=== PATIENT | male | born 1995 | race African-American/Black ===

== ENCOUNTER 2018-02-09 18:50 | Emergency (ER) | payer OTHER ==
[2018-02-09] MEDS ORDERED: Lidocaine 2% VISCOUS* 15 ML UDC PO ONE (20:38)
[2018-02-09] MEDS ORDERED: Azithromycin TAB* 250 MG PO ONE (20:38)
--- NOTE | 2018-02-09 20:38 | ED ---
Head Injury - HPI Summary HPI Summary: Patient complains of mechanical fall from standing onto a hardwood floor with head injury. Denies LOC, vision change, N/V, CHAMPION, AMS, dizziness, any other pain or injury. Patient also complains of sore throat starting this morning. Denies fever, cough, CP, SOB, N/V/D, abdominal pain, change in urine, change in BM. Medical history is none. - History Of Current Complaint Chief Complaint: EDHeadache Stated Complaint: HEAD INJURY Time Seen by Provider: 02/09/18 19:56 Hx Obtained From: Patient Mechanism Of Injury: Fall From A Standing Position Onset/Duration: Started Hours Ago Onset of Pain: Immediate Severity Currently: Mild Severity Initially: Mild Pain Intensity: 3 Pain Scale Used: 0-10 Numeric Location of Head Injury: Other: - Patient denies specific location of pain. Location: Diffuse Character: Dull Associated Signs And Symptoms: Negative - Allergies/Home Medications Allergies/Adverse Reactions: Allergies Allergy/AdvReac Type Severity Reaction Status Date / Time No Known Allergies Allergy Verified 02/09/18 18:53 PMH/Surg Hx/FS Hx/Imm Hx Endocrine/Hematology History: Denies: Hx Anticoagulant Therapy Cardiovascular History: Denies: Hx Cardiac Arrest History: Denies: Hx Dialysis Neurological History: Denies: Hx CVA Infectious Disease History: No Infectious Disease History: Denies: Traveled Outside the [place] in Last 30 Days - Family History Known Family History: Positive: Unknown - Social History Occupation: Student Lives: Dormitory/Roommates Alcohol Use: Rare Hx Substance Use: No Hx Tobacco Use: No Review of Systems Constitutional: Negative Eyes: Negative Positive: Sore Throat Cardiovascular: Negative Respiratory: Negative Gastrointestinal: Negative Genitourinary: Negative Musculoskeletal: Negative Skin: Negative Neurological: Negative Psychological: Normal All Other Systems Reviewed And Are Negative: Yes Physical Exam - Summary Physical Exam Summary: No ecchymosis, erythema, wound, contusion, swelling to head, face, mouth. Free range of motion of neck without indication of pain. Patient moves all 4 extremities without indication of pain. No pain with palpation of back, neck, chest wall, abdomen. Neuro exam normal. Tonsillar swelling and erythema with no exudates. Physical exam otherwise unremarkable. Triage Information Reviewed: Yes Vital Signs On Initial Exam: Initial Vitals Temp Pulse Resp BP Pulse Ox 99.2 F 63 14 133/64 100 02/09/18 18:53 02/09/18 18:53 02/09/18 18:53 02/09/18 18:53 02/09/18 18:53 Vital Signs Reviewed: Yes Appearance: Positive: Well-Appearing Skin: Positive: Warm Head/Face: Positive: Normal Head/Face Inspection Eyes: Positive: Normal ENT: Positive: Pharyngeal erythema, Tonsillar swelling, Uvula midline. Negative : Tonsillar exudate, Trismus, Muffled voice, Hoarse voice Neck: Positive: Supple Respiratory/Lung Sounds: Positive: Clear to Auscultation Cardiovascular: Positive: Normal Abdomen Description: Positive: Nontender Musculoskeletal: Positive: Normal Neurological: Positive: Normal Psychiatric: Positive: Normal AVPU Assessment: Alert - Anurag Coma Scale Best Eye Response: 4 - Spontaneous Best Motor Response: 6 - Obeys Commands Best Verbal Response: 5 - Oriented Coma Scale Total: 15 Diagnostics - Vital Signs Vital Signs Temp Pulse Resp BP Pulse Ox 02/09/18 18:53 99.2 F 63 14 133/64 100 - Laboratory Lab Statement: Any lab studies that have been ordered have been reviewed, and results considered in the medical decision making process. Head Injury Course/Dx Course Of Treatment: Patient complains of mechanical fall from standing onto a hardwood floor with head injury. Denies LOC, vision change, N/V, CHAMPION, AMS, dizziness, any other pain or injury. Patient also complains of sore throat starting this morning. Denies fever, cough, CP, SOB, N/V/D, abdominal pain, change in urine, change in BM. Medical history is none. Physical exam:No ecchymosis, erythema, wound, contusion, swelling to head, face, mouth. Free range of motion of neck without indication of pain. Patient moves all 4 extremities without indication of pain. No pain with palpation of back, neck, chest wall, abdomen. Neuro exam normal. Tonsillar swelling and erythema with no exudates. Physical exam otherwise unremarkable. Does not meet Citizen [place] CT head will criteria for head CT. Criteria explained the patient and patient understands. Patient advised to be on alert for concerning symptoms of concussion or head injury. Patient has pharyngitis symptoms. Rx for lidocaine and azithromycin. - Diagnoses Provider Diagnoses: Head injury, Pharyngitis Discharge - Sign-Out/Discharge Documenting (check all that apply): Patient Departure - Discharge Plan Condition: Stable Disposition: HOME Prescriptions: Azithromycin 250 mg PO DAILY 5 Days #4 tablet Lidocaine 2% VISCOUS* [Xylocaine 2% Viscous*] 15 ml SWISH SPIT Q6H PRN #1 btl PRN Reason: Pain Patient Education Materials: Pharyngitis (ED), Head Injury (ED) Referrals: [facility] - [place] [Medical Doctor] - Additional Instructions: Take antibiotics as directed. Use lidocaine every 6 hours for sore throat discomfort. He may also take Tylenol or ibuprofen for same. Follow-up with primary care. Return to the ED for any new or worsening symptoms. - Billing Disposition and Condition Condition: STABLE Disposition: Home
[2018-02-09 21:04] VITALS: BP 127/73
== END 2018-02-09 21:15 | disposition home or self-care (01) ==
LOC: ED 18:50
DX: S09.90XA Unspecified injury of head, initial encounter (principal); J02.9 Acute pharyngitis, unspecified; W19.XXXA Unspecified fall, initial encounter; Y92.9 Unspecified place or not applicable
CPT/HCPCS: 99284